=== PATIENT | female | born 1955 | race Caucasian/White ===

== ENCOUNTER 2018-01-02 08:50 | Day surgery (SDC) | payer BC ==
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
[2018-01-01 14:45] VITALS: BMI 28.7
[2018-01-02] MEDS ORDERED: ERTAPENEM SODIUM 1 GM VIAL ONE (09:26)
[2018-01-02] MEDS ORDERED: ACETAMINOPHEN 325 MG TABLET (FP) PO PRN (12:14)
[2018-01-02] MEDS ORDERED: oxyCODONE HCL 5 MG TABLET PO PRN ×3 (12:14→17:03)
[2018-01-02] MEDS ORDERED: morphine SULFATE 4 MG/ML VIAL IVPB PRN (12:14)
[2018-01-02] MEDS ORDERED: ONDANSETRON 4 MG/2 ML VIAL IVPUSH PRN ×2 (12:14→17:03)
[2018-01-02] MEDS ORDERED: DEXAMETHASONE SOD PHOSPHATE 4 MG/1 ML VIAL ONE (13:12)
[2018-01-02] MEDS ORDERED: fentaNYL CITRATE 250 MCG/5 ML VIAL ONE (13:12)
[2018-01-02] MEDS ORDERED: PROPOFOL 20 ML ONE (13:12)
[2018-01-02] MEDS ORDERED: LIDOCAINE HCL/PF 2% SDV 5ML VIAL ONE ×2 (13:12→16:55)
[2018-01-02] MEDS ORDERED: ROCURONIUM BROMIDE 50 MG/5 ML VIAL ONE (13:12)
[2018-01-02] MEDS ORDERED: ERTAPENEM SODIUM 1 GM VIAL IVPB ONE (14:45)
[2018-01-02] MEDS ORDERED: GLYCOPYRROLATE 0.2 MG/1 ML VIAL ONE (16:45)
[2018-01-02] MEDS ORDERED: KETOROLAC TROMETHAMINE 30 MG/1 ML VIAL ONE (17:05)
[2018-01-02] MEDS ORDERED: LACTATED RINGERS SOLUTION 1,000 ML IV SCH (17:15)
[2018-01-02] MEDS: ACETAMINOPHEN 1000 MG/100 ML VIAL (NON FORMULARY) IVPB ONE ×2 (17:30→19:28)
[2018-01-02] MEDS: D5-1/2NS+20 MEQ KCL - 20 MEQ/1,000 ML INFUS.BAG IV SCH (18:15)
--- NOTE | 2018-01-02 20:58 | OP ---
DATE OF OPERATION: 01/02/2018 PREOPERATIVE DIAGNOSIS: Chronic cholecystitis, abnormal liver function tests. POSTOPERATIVE DIAGNOSIS: Chronic cholecystitis, abnormal liver function tests. PROCEDURE: Laparoscopic cholecystectomy. Wedge biopsy of the liver. Peritoneal lavage. Extensive lysis of adhesions. SURGEON: Natan Song M.D. FOOD SERVICE LEAD: Valdemar Cardona M.D. ANESTHESIOLOGIST: Miguel Majano M.D. ANESTHESIA: General. ESTIMATED BLOOD LOSS: Minimal. SPECIMEN: Portion of liver and gallbladder. INDICATION FOR PROCEDURE: This 62-year-old female with history of gallstones who had acute bouts of biliary colic and cholecystitis in the past. She also has abnormal LFTs. She is here today for the above procedure. DESCRIPTION OF PROCEDURE: Patient identified and appropriately positioned operating room table, after placement of general anesthesia the abdomen prepped and draped in the usual sterile fashion with Chloraprep. An infraumbilical incision is made deepened into . The fascia of the rectus divided sharply. The peritoneum incised and upon entering the abdomen, there are multiple adhesions. These adhesions are bluntly dissected and the Roman port placed under direct vision. Patient has a right paramedian and left upper quadrant from a perforated appendix followed by drainage of abdominal abscess. Therefore she has a large amount of intraabdominal adhesions and scar. A camera was placed, and there were multiple dense adhesions in the upper abdomen, small windows were made and the camera was navigated to the midline to allow placement of another port. Once the second port was placed under direct vision, the adhesions were then slowly lysed. Lysis of adhesions for this case took at least 1/3 of the time. All the adhesions were taken down sharply with LigaSure device. The patient is noted to have a large amount of intraabdominal adhesions of omentum and even small bowel liver due to her previous surgeries. Once this was accomplished, attention was then focused on the cholecystectomy. The gallbladder itself was thickened from chronic cholecystitis. There were dense adhesions around the gallbladder on either side. These adhesions of omentum were taken down with LigaSure device. The gallbladder neck identified followed by the infundibulum. The cystic duct circumferentially isolated, clipped and then divided. The cystic artery identified in a similar fashion, was subsequently clipped and taken with LigaSure device. Due to the chronicity of this gallbladder, the gallbladder itself was removed from the liver bed at the level of the neck and infundibulum with the LigaSure device, and the gallbladder was mobilized further up towards the dome. It was then subsequently taken with the cautery. The gallbladder was markedly thickened and abnormal and therefore brought out through the umbilical port site with a [id number] clamp. The fascia at the umbilicus had to be lengthened along with the incision to facilitate removal of this chronic gallbladder filled with stones. Once the gallbladder was removed, the right upper quadrant was then copiously irrigated with warm saline, irrigated and retrieved and noted to be clear. Unfortunately, the liver edge was excised, and the wedge liver biopsy. The specimen was handed off as well and placed in formalin. The biopsy site was cauterized as needed. The right upper quadrant irrigated once again, irrigated, retrieved, and noted to be clear. Ports removed. Port sites hemostatic. The fascia at the umbilical port site reapproximated with interrupted 0 Vicryl suture, all skin closed with ray followed by Dermabond. At the conclusion of the case, sponge counts correct. ATTESTATION: Brief operative note handwritten on the preprinted form. [facility] queried prior to giving narcotics. Caitlin RENNER [id number]
[2018-01-02] MEDS ORDERED: ATORVASTATIN CA 20 MG TABLET (FP) PO SCH (22:00)
[2018-01-03] MEDS: D5-1/2NS+20 MEQ KCL - 20 MEQ/1,000 ML INFUS.BAG IV SCH (03:42)
[2018-01-03] MEDS ORDERED: ENOXAPARIN NA (PORCINE) 40 MG/0.4 ML DISP.SYRIN SQ SCH (10:00)
[2018-01-03] MEDS ORDERED: PANTOPRAZOLE SODIUM 40 MG VIAL IVPUSH SCH (10:00)
[2018-01-03 10:06] VITALS: BP 140/60; PULSE 62; TEMP 98.4
--- NOTE | 2018-01-03 10:43 | PN ---
Progress Note, Physician Chief Complaint: Pt walking around, feels some scratchiness in throat, no other anesthesia complaints. - Current Medication List Current Medications: Active Medications Acetaminophen (Tylenol -) 650 mg PO Q4H PRN PRN Reason: FEVER Last Admin: 01/03/18 07:05 Dose: 650 mg Atorvastatin Calcium (Lipitor -) 20 mg PO HS [facility] Last Admin: 01/02/18 22:17 Dose: 20 mg Enoxaparin Sodium (Lovenox -) 40 mg SQ DAILY [facility] Last Admin: 01/03/18 10:10 Dose: 40 mg Potassium Chloride/Dextrose/Sod Cl (D5-1/2ns+20 Meq Kcl -) 20 meq in 1,000 mls @ 100 mls/hr IV ASDIR [facility] Last Admin: 01/03/18 03:42 Dose: 100 mls/hr Morphine Sulfate (Morphine Sulfate) 4 mg IVPB Q3H PRN PRN Reason: PAIN LEVEL 7 - 10 Ondansetron HCl (Zofran Injection) 4 mg IVPUSH Q6H PRN PRN Reason: NAUSEA AND/OR VOMITING Last Admin: 01/02/18 20:01 Dose: 4 mg Oxycodone HCl (Roxicodone -) 7.5 mg PO Q4H PRN PRN Reason: PAIN LEVEL 4 - 6 Oxycodone HCl (Roxicodone -) 5 mg PO Q4H PRN PRN Reason: PAIN LEVEL 1-5 Stop: 01/03/18 17:02 Oxycodone HCl (Roxicodone -) 10 mg PO Q4H PRN PRN Reason: PAIN LEVEL 6-10 Stop: 01/03/18 17:02 Pantoprazole Sodium (Protonix Iv) 40 mg IVPUSH DAILY [facility] Last Admin: 01/03/18 10:11 Dose: 40 mg - Objective Vital Signs: Vital Signs Temperature 98.4 F 01/03/18 10:05 Pulse Rate 62 01/03/18 10:05 Respiratory Rate 20 01/03/18 10:05 Blood Pressure 140/60 01/03/18 10:05 O2 Sat by Pulse Oximetry (%) 95 01/02/18 21:00 Constitutional: Yes: Well Nourished, No Distress, Calm Musculoskeletal: Yes: WNL Neurological: Yes: WNL, Alert, Oriented ...Motor Strength: WNL Assessment/Plan POD#1 s/p lap jessica under GA. Doing well. D/C from anesthesia care.
--- NOTE | 2018-01-07 13:46 | PATH ---
Surgical Pathology Report Patient Name: DIANE REED [facility]. Rec. #: [id number] /Age/Gender: 1955 (Age: 62) / F Account: [id number] Location: AMBULATORY SURG Taken: 01/02/2018 Received: 01/03/2018 Reported: 01/07/2018 Physicians: Natan Song Specimen(s) Received A: GALLBLADDER B: LIVER BIOPSY Clinical History Gallstones Final Diagnosis A. GALLBLADDER, CHOLECYSTECTOMY: CHRONIC CHOLECYSTITIS, CHOLESTEROLOSIS, AND CHOLELITHIASIS. B. LIVER, BIOPSY: SUBCAPSULAR LIVER TISSUE SHOWING PERIVENULAR AND PERIPORTAL FIBROSIS WITH FOCAL FIBROUS SEPTA (TRICHROME STAIN). PORTAL TRACTS SHOW A MIXED INFLAMMATORY INFILTRATE COMPRISED OF MAINLY LYMPHOCYTES WITH FEW SCATTERED PLASMA CELLS. FOCAL NEUTROPHILIC CLUSTERS IN THE SINUSOIDS. IRON STAIN SHOWING FOCAL MILD IRON DEPOSITION. PAS WITH DIASTASE STAIN IS NEGATIVE FOR [id number] GLOBULES. Comment: The liver fibrosis cannot be fully evaluated due to the suboptimal material (subcapsular liver tissue). The non-specific chronic inflammation could be due to the surgical procedures, or chronic hepatitis. Correlate with other clinical data and radiology image findings is necessary. Electronically Signed All Rodríguez M.D. Gross Description A. Received in formalin, labeled "gallbladder," is a 9 x 3 x 3 cm. gallbladder with a 0.2 cm. in length portion of cystic duct attached. The outer surface varies from smooth to shaggy. The lumen contains with bile and multiple stones, the largest measures 4 cm in greatest dimension. The mucosa is smooth. The wall of the gallbladder measures 0.1cm. in thickness. Forensic Manager sections are submitted in one cassette. B. Received in formalin, labeled "liver biopsy" is a portion of liver tissue measuring 1.5 x 1.2 x 0.3 cm. The liver tissue is serially sectioned. The specimen is entirely submitted in toto in one cassette. __ KWS/01/03/2018 sulki/01/03/2018
== END 2018-01-03 12:59 | disposition home or self-care (01) ==
LOC: JASUSAT 08:50 → JASU-SURG 08:50 → J8W 18:15 → JASUSAT 01-03 12:59
PROVIDERS: ATTEND Surgery
PROC: 0FB04ZX Excision of Liver, Percutaneous Endoscopic Approach, Diagnostic (ICD-10-PCS; 2018-01-02)
PROC: 0DNW4ZZ Release Peritoneum, Percutaneous Endoscopic Approach (ICD-10-PCS; 2018-01-02)
PROC: 0FT44ZZ Resection of Gallbladder, Percutaneous Endoscopic Approach (ICD-10-PCS; principal; 2018-01-02 14:15)
DX: K81.1 Chronic cholecystitis (principal); K66.0 Peritoneal adhesions (postprocedural) (postinfection); R94.5 Abnormal results of liver function studies
CPT/HCPCS: 88304-TC; 88305-TC; 88313-TC; 94760; J0131

== ENCOUNTER 2019-05-13 08:04 | Day surgery (SDC) | payer BC ==
[2019-05-12 10:35] VITALS: BMI 28.3
--- NOTE | 2019-05-13 07:50 | HP ---
History & Physical Update - Physical Physical: No Change - Assessment Assessment: No Change - Plan Plan: No Change (H&P reviwed , no changes, for hysteroscopy D&C)
[2019-05-13] MEDS ORDERED: MIDAZOLAM HCL 2 MG/2 ML SINGLE DOSE VIAL ONE (10:20)
[2019-05-13] MEDS ORDERED: PROPOFOL 20 ML ONE ×4 (10:20→10:53)
[2019-05-13] MEDS ORDERED: oxyCODONE HCL 5 MG TABLET PO PRN (11:16)
[2019-05-13] MEDS ORDERED: ACETAMINOPHEN 325 MG TABLET (FP) PO PRN (11:16)
[2019-05-13] MEDS ORDERED: ONDANSETRON 4 MG/2 ML VIAL IVPUSH PRN (11:16)
[2019-05-13] MEDS ORDERED: LACTATED RINGERS SOLUTION 1,000 ML IV SCH (11:30)
--- NOTE | 2019-05-13 12:14 | OP ---
Operative Note - Note: Operative Date: 05/13/19 Pre-Operative Diagnosis: fibroid uterus, submucos myoma Operation: hysteroscopy , , resection of submucos myoma Findings: large fibroid uterus 14 to 16 weeks size, large submucos myoma Surgeon: Luis Arvizu Anesthesiologist/IMAGERY INTELLIGENCE: Mariposa Ragland Anesthesia: General Specimens Removed: submucos myoma Estimated Blood Loss (mls): 150 Instrument used (Debridements only): symphion resectoscope Drains & Tubes with Location: none Blood Volume Replaced (mls): 0 Operative Report Dictated: Yes
[2019-05-13 13:25] VITALS: BP 137/73; PULSE 51; TEMP 97.5
--- NOTE | 2019-05-15 16:23 | PATH ---
Surgical Pathology Report Patient Name: DIANE REED [facility]. Rec. #: [id number] /Age/Gender: 1955 (Age: 64) / F Account: [id number] Location: [facility] SURGICAL Taken: 05/13/2019 Received: 05/14/2019 Reported: 05/15/2019 Physicians: Luis Arvizu M.D. Specimen(s) Received FIBROID Clinical History Fibroids Final Diagnosis FIBROID, RESECTION: FRAGMENTS OF SMOOTH MUSCLE, CONSISTENT WITH LEIOMYOMA. PORTIONS OF ENDOCERVICAL TISSUE PRESENT. Electronically Signed All Rodríguez M.D. Gross Description Received in formalin labeled "fibroid," is a 1 g, 1.5 x 1.2 x 0.2 cm aggregate of cary, firm to rubbery portions of tissue, consistent with morcellated fibroid. The specimen is submitted in toto in one cassette. /05/14/2019 saudi05/14/2019
--- NOTE | 2019-05-20 16:13 | OP ---
DATE OF OPERATION: 05/13/2019 PREOPERATIVE DIAGNOSIS: Fibroid uterus, submucous leiomyoma. POSTOPERATIVE DIAGNOSIS: Fibroid uterus, submucous leiomyoma. PROCEDURE: Hysteroscopy, resection of submucous myoma. SURGEON: Luis Clarke MD ANESTHESIA: General. ANESTHESIOLOGIST: Mariposa Ragland DO ESTIMATED BLOOD LOSS: 150 mL. OPERATION: Patient was taken to operating room. Under adequate general anesthesia, abdomen and vagina were prepped and draped. Examination under anesthesia revealed the external genitalia to be normal. Uterus was enlarged approximately 16 weeks' size irregular with fibroids. Adnexa, no masses were palpable. Then with a weighted speculum in the vagina, anterior lip of the cervix was grasped with a single-loop tenaculum. Cervical canal was slightly dilated. Uterine cavity was sounded to 12 cm. Then Symphion resectoscope was introduced into the uterine cavity. Endocervical canal appeared to be normal, but there was a large submucous myoma occupying the entire endometrial cavity. Cavity was distorted. Unable to see endometrium. Then with a Symphion resectoscope, part of the fibroid was resected and removed. Dilation and curettage could not be done because there was no room in the cavity. Patient tolerated procedure well. Left the OR in good condition. LUIS CLARKE M.D. /[id number]
== END 2019-05-13 13:29 | disposition home or self-care (01) ==
LOC: JASU-SURG 08:04
PROVIDERS: ATTEND Obstetrics & Gynecology
PROC: 0UB98ZZ Excision of Uterus, Via Natural or Artificial Opening Endoscopic (ICD-10-PCS; principal; 2019-05-13 10:00)
DX: D25.0 Submucous leiomyoma of uterus (principal)
CPT/HCPCS: 71046-TC-FY; 86850; 86900; 86901; 94760

== ENCOUNTER 2023-01-29 04:57 | Day surgery (SDC) | payer OTHER, BC ==
[2023-01-25 10:07] VITALS: BMI 26.6
[2023-01-29 07:30] VITALS: RESP 16; TEMP 97.7
[2023-01-29] MEDS ORDERED: PROPOFOL 40 ML ONE (08:32)
[2023-01-29] MEDS ORDERED: MIDAZOLAM HCL 2 MG/2 ML SINGLE DOSE VIAL ONE (08:32)
[2023-01-29] MEDS ORDERED: SUCCINYLCHOLINE CHLORIDE 200 MG/10 ML SYRINGE ONE (08:33)
[2023-01-29] MEDS ORDERED: ONDANSETRON 4 MG/2 ML VIAL IVPUSH PRN (08:46)
[2023-01-29] MEDS ORDERED: oxyCODONE HCL 5 MG TABLET PO PRN (08:46)
[2023-01-29] MEDS ORDERED: LACTATED RINGERS SOLUTION 1,000 ML IV SCH (09:00)
[2023-01-29] MEDS ORDERED: ceFAZolin SODIUM 1 GM VIAL ONE (09:01)
[2023-01-29] MEDS ORDERED: ceFAZolin SODIUM 1 GM VIAL IVPB ONE (09:05)
[2023-01-29 10:37] VITALS: BP 126/70; PULSE 51
== END 2023-01-29 12:02 | disposition home or self-care (01) ==
LOC: JASU-SURG 04:57
PROVIDERS: ATTEND Orthopaedic Surgery
PROC: 0PBC0ZZ Excision of Right Humeral Head, Open Approach (ICD-10-PCS; principal; 2023-01-29 09:00)
DX: M77.11 Lateral epicondylitis, right elbow (principal); S56.511A Strain of other extensor muscle, fascia and tendon at forearm level, right arm, initial encounter; X58.XXXA Exposure to other specified factors, initial encounter; Y93.9 Activity, unspecified; Y92.9 Unspecified place or not applicable; Y99.9 Unspecified external cause status
CPT/HCPCS: 88304-TC; J1100